=== PATIENT | female | born 1980 | race Caucasian/White ===

== ENCOUNTER 2019-05-20 12:29 | Outpatient (CLI) | payer BC ==
--- NOTE | 2019-05-20 16:22 | MRI ---
Exam: Brain MRI without contrast HISTORY: Follow-up multiple sclerosis. COMPARISON: 09/05/2015 FINDINGS: Calvarial marrow signal intensity: Appropriate T1 signal Gradient echo sequence: No hemorrhage Brain parenchyma: No mass, mass effect or midline shift. Brain volume, age-appropriate. Cortical jackson-white matter differentiation: Preserved Restricted diffusion: Central arterial flow voids are maintained. Absent restricted diffusion White matter signal intensities:Stable subcortical FLAIR hyperintensity in the right cortex. Stable p eriventricular white matter hyperintensities in the left and right coronary radiata. No associated restricted diffusion. No new white matter lesions are appreciated. Sinuses: Adequate aeration of the paranasal sinuses and mastoid air cells. IMPRESSION: 1. Contrast not administered due to patient reporting that she is highly allergic to MultiHance. 2. Essentially stable white matter hyperintensities on the axial FLAIR sequence. No new lesions are a ppreciated.
== END 2019-05-20 12:30 | disposition home or self-care (01) ==
LOC: SCSMRI 12:29
PROVIDERS: ATTEND Psychiatry & Neurology Neurology
DX: G35 Multiple sclerosis (principal); R90.89 Other abnormal findings on diagnostic imaging of central nervous system
CPT/HCPCS: 70551